=== PATIENT | female | born 1950 | race Caucasian/White ===

== ENCOUNTER → 2021-04-11 | Outpatient (CLI) | payer OTHER ==
[2016-07-15 17:10] VITALS: BP 171/86
[~2021-04-11] MED LIST: AMIT25TA PO; GABA100C6 PO; NABU500T11 PO
== END ==
LOC: LAB 10:45
PROVIDERS: ATTEND Internal Medicine Cardiovascular Disease
DX: Z01.812 Encounter for preprocedural laboratory examination (principal); R06.00 Dyspnea, unspecified; Z20.822 Contact with and (suspected) exposure to COVID-19
CPT/HCPCS: U0003

== ENCOUNTER → 2021-05-13 | Outpatient (CLI) | payer OTHER ==
[2016-07-15 17:10] VITALS: BP 171/86
--- NOTE | 2021-05-13 10:15 | RAD ---
CT shows that contrast, low dose lung cancer screening protocol Indication: [Low dose lung cancer screening exam. 15 year history of smoking.] Comparison study: [None] Technique: Multidetector CT imaging of the chest was performed without the administration of contrast using a low-dose, lung cancer screening protocol Findings: There is no evidence of filling defect within central pulmonary arteries or other evidence of acute p ulmonary embolism. Heart size is normal. No significant pericardial effusion is seen Mildly prominent mediastinal lymph nodes are seen. There is a mildly enlarged lymph node anterior to the myra measuring 1.5 cm in short axis diameter. No focal consolidation or infiltrate is seen. No pneumothorax or pleural effusion is seen. No acute osseous abnormality is identified. Limited visualization of the upper abdomen demonstrates no acute a bnormality. Impression: 1. No concerning lung nodules are identified. Lung RADS category 1S (see 2.) 2. Mildly enlarged mediastinal lymph node, anterior to the myra measuring 1.5 cm in short axis diam eter. The appearance is nonspecific. Follow-up CT chest, preferably with contrast, in 3-[address] DOSING PQRS STATEMENT: One or more of the following individualized dose reduction techniques were utilized for this examinat ion: 1. Automated exposure control 2. Adjustment of the mA and/or kV according to patient size 3. Use of iterative reconstruction technique Electronically signed by: Luis Garsia MD (05/13/2021 10:12 AM) [id number]
== END ==
LOC: CT 08:07
PROVIDERS: ATTEND Family Medicine
DX: Z12.2 Encounter for screening for malignant neoplasm of respiratory organs (principal); J44.9 Chronic obstructive pulmonary disease, unspecified; F17.210 Nicotine dependence, cigarettes, uncomplicated
CPT/HCPCS: 71271

== ENCOUNTER → 2021-09-06 | Outpatient (CLI) | payer OTHER ==
[2016-07-15 17:10] VITALS: BP 171/86
[2021-09-06 09:50] LABS: CREATININE 0.5 mg/dL (0.6-1.0); GFR 121.6
[2021-09-06] MEDS: IOHEXOL 300 MG/ML 75 ML VIAL. IV ONE (09:55)
--- NOTE | 2021-09-06 11:02 | RAD ---
CT THORAX W History: Lymphadenopathy. Smoking history. Technique: CT of the chest with contrast was performed. Coronal and sagittal reconstructions were per formed. Exposure: One or more of the following individualized dose reduction techniques were utilized for thi s examination: 1. Automated exposure control 2. Adjustment of the mA and/or kV according to patient size 3. Use of iterative reconstruction technique. Comparison: May 13, 2021 Findings: Chest: Precarinal lymph node measures 1.7 x 1.6 cm, similar compared to prior. Left peritracheal lymp h node measures 2.1 x 1.2 cm, unchanged. Additional smaller mediastinal lymph nodes, similar compared to prior. Small axillary lymph nodes noted. No pulmonary embolism. Mild atheromatous plaque within t he aorta. Coronary artery calcifications. Left breast cyst measures 2.6 x 2.1 cm, unchanged. No consolidation or pleural effusion. No pneumothorax. 2 mm left lower lobe fissure-based nodule (ser ies 4 image 35), unchanged. Upper abdomen: Hepatic steatosis. Prior cholecystectomy. Left renal cyst. Left adrenal nodule measure s 1.4 x 1.4 cm. Not included in the image previously. Bones: Glenohumeral DJD. Impression: 1. Mildly enlarged mediastinal lymph nodes, unchanged. 2. Unchanged tiny left lower lobe pulmonary nodule. Recommend continued annual low-dose screening no ncontrast chest CT. 3. Left adrenal nodule. Recommend adrenal protocol CT or MRI to further assess. Comparison with prio r imaging studies would also be of benefit. 4. Hepatic steatosis. Electronically signed by: Chung Cruz DO (09/06/2021 10:59 AM) [facility]
== END ==
LOC: CT 08:43
PROVIDERS: ATTEND Family Medicine
DX: R91.1 Solitary pulmonary nodule (principal); K76.0 Fatty (change of) liver, not elsewhere classified; N28.1 Cyst of kidney, acquired; I70.0 Atherosclerosis of aorta; N60.02 Solitary cyst of left breast; I25.10 Atherosclerotic heart disease of native coronary artery without angina pectoris; R59.0 Localized enlarged lymph nodes; M19.019 Primary osteoarthritis, unspecified shoulder
CPT/HCPCS: 36415; 71260; 82565; 84520; Q9967

== ENCOUNTER → 2021-10-01 | Outpatient (CLI) | payer OTHER ==
[2016-07-15 17:10] VITALS: BP 171/86
[~2021-10-01] MED LIST changes: +IOHEXOL 300 MG/ML 75 ML VIAL. IV ONE
--- NOTE | 2021-10-01 11:22 | RAD ---
Exam: CT abdomen/pelvis with intravenous contrast Indication: Adrenal protocol Comparison: CT chest 09/06/2021 Technique: Helical CT imaging performed of the abdomen and pelvis before and after the intravenous ad ministration of contrast. The abdominal portion of the exam was performed according to adrenal mass p rotocol. Sagittal and coronal reformats were obtained. One or more of the following individualized dose reduction techniques were utilized for this examinat ion: 1. Automated exposure control 2. Adjustment of the mA and/or kV according to patient size 3. Use of iterative reconstruction technique. Findings: Lower chest: There is a 2.3 cm cystic lesion in the left breast (image 3 axial series). Lung bases ar e clear. Heart is normal in size. There are coronary artery and mitral annulus calcifications. Liver: The liver is diffusely low in attenuation consistent with hepatic steatosis. No focal liver le abi. Gallbladder/Biliary Tree: Gallbladder surgically absent. Bile ducts are normal. Pancreas: Normal. Spleen: Normal. Adrenal Glands: There are 2 left adrenal nodules measuring 1.3-1.5 cm. One of these has Hounsfield un its of 29 on precontrast, 48 on portal venous, and 26 on 15 minute delayed phases, consistent with an adrenal adenoma. The other has similar Hounsfield units and is also consistent with an adrenal adeno ma. The right adrenal gland is normal. Kidneys/Ureters/Bladder: Kidneys are normal in size and enhance symmetrically. There is no hydronephr osis or nephrolithiasis. There is a 3 cm nonenhancing simple cyst in the left kidney. Ureters and steven dder are normal. Reproductive Organs: The uterus is surgically absent. No adnexal mass. Stomach, small bowel, and colon: Small hiatal hernia. There is no small bowel obstruction. The append ix is not visualized. Mild scattered colonic diverticulosis. Vasculature: No aortic aneurysm. Mild calcified aortoiliac atherosclerosis Lymph Nodes: There is no lymphadenopathy. Peritoneum and retroperitoneum: No free fluid or free air. Bones: No acute osseous abnormality. IMPRESSION: 1. Left adrenal adenomas. 2. Hepatic steatosis. 3. 2.3 cm cystic lesion in the left breast, unchanged. Correlate with mammogram. 4. Small hiatal hernia. Electronically signed by: Layla Landaverde MD (10/01/2021 11:19 AM) [id number]
== END ==
LOC: CT 08:01
PROVIDERS: ATTEND Family Medicine
DX: E27.9 Disorder of adrenal gland, unspecified (principal); K44.9 Diaphragmatic hernia without obstruction or gangrene; K76.0 Fatty (change of) liver, not elsewhere classified; N64.89 Other specified disorders of breast; Z90.710 Acquired absence of both cervix and uterus
CPT/HCPCS: 74178; Q9967

== ENCOUNTER 2022-04-12 02:00 | Emergency (ER) | payer OTHER ==
[~2022-04-12] VITALS: Ht 160 cm; Wt 100.0 kg
[~2022-04-12 02:00] MED LIST changes: -IOHEXOL 300 MG/ML 75 ML VIAL. IV ONE
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
[2022-04-12 02:33] VITALS: BP 149/70
[2022-04-12] MEDS ORDERED: DIPHTH,PERTUSS(ACELL),TET TOX 0.5 ML DISP.SYRIN. VAX IM ONE (02:45)
[2022-04-12] MEDS ORDERED: LIDOCAINE 2% 20 ML VIAL. IJ ONE (02:45)
[2022-04-12] MEDS ORDERED: MUPIROCIN 2% TOPICAL OINTMENT 22GM TUBE. TP SCH (03:00)
== END 2022-04-12 04:33 | disposition home or self-care (01) ==
LOC: ER 02:00
DX: S61.012A Laceration without foreign body of left thumb without damage to nail, initial encounter (principal); M79.7 Fibromyalgia; I25.2 Old myocardial infarction; W26.0XXA Contact with knife, initial encounter; Y93.89 Activity, other specified; Y92.89 Other specified places as the place of occurrence of the external cause; Y99.8 Other external cause status
CPT/HCPCS: 12001; 90471; 90715; 99283; J2001

== ENCOUNTER → 2022-04-25 | Outpatient (CLI) | payer OTHER ==
[2022-04-12 02:33] VITALS: BP 149/70
[2022-04-25 14:02] LABS: BASO % 0 % (0-3); EOS # 0.3 x10^3/uL (0.0-0.7); EOS % 2 % (0-3); HEMATOCRIT 29.8 % (36.0-47.0); HEMOGLOBIN 8.7 g/dL (12.0-15.5); LYMPH % 16 % (24-48); MEAN CORPUSCULAR HEMOGLOBIN 17 pg (25-35); MEAN CORPUSCULAR HGB CONC 29 g/dL (31-37); MEAN CORPUSCULAR VOLUME 58 fL (79-100); MONO # 0.8 x10^3/uL (0.0-1.1); MONO % 6 % (0-9); NEUT # 9.4 x10^3uL (1.8-7.7); NEUT % 75 % (31-73); PLATELET COUNT 450 x10^3/uL (140-400); RED BLOOD COUNT 5.13 x10^6/uL (3.50-5.40); RED CELL DISTRIBUTION WIDTH 24.1 % (11.5-14.5); WHITE BLOOD COUNT 12.4 x10^3/uL (4.0-11.0)
[2022-04-25 14:44] LABS: ANISOCYTOSIS MOD; HYPOCHROMIA MOD; MICROCYTOSIS MARKED; PLT ESTIMATE ADEQUATE (ADEQUATE)
== END ==
LOC: LAB 11:24
PROVIDERS: ATTEND Family Medicine
DX: D64.9 Anemia, unspecified (principal)
CPT/HCPCS: 36415; 82728; 83540; 83550; 85025